=== PATIENT | male | born 1960 | race Caucasian/White ===

== ENCOUNTER → 2016-10-26 | Outpatient (CLI) | payer MEDICARE, OTHER ==
[~2016-10-26] MED LIST: AUGMENTIN TAB875 MG PO; ERYTHROMYCIN O3.5 GM OP; ERYTHROMYCIN OP1 GM OU; FLEXERIL 10 MG10 MG PO; GLUCOPHAGE500 MG PO; HYGROTON TAB 2525 MG PO; JANUVIA50 MG PO; KLONOPIN TAB 00.5 MG PO; LIPITOR TAB 2020 MG PO; LISINOPRIL40 MG PO; LOPRESSOR50 MG PO; METOPROLOL TART50 MG PO; NORVASC10 MG PO; OXYCONTIN15 MG PO; SYNTHROID88 MCG PO; VITAMIN D1000 UNIT PO; VITAMIN D31000 UNI1 PO
== END ==
LOC: KOH-I 11:39
DX: S62.102A Fracture of unspecified carpal bone, left wrist, initial encounter for closed fracture (principal)
CPT/HCPCS: 73200

== ENCOUNTER 2016-11-21 11:00 | Inpatient (IN) | payer MEDICARE, OTHER ==
[~2016-11-21] VITALS: Ht 175.3 cm; Wt 120.0 kg
[2016-11-21 14:45] LABS: HEMOGLOBIN 12.1 gm/dl (14.0-17.5); RED BLOOD COUNT 4.28 M/UL (4.20-5.50)
[2016-11-21] MEDS ORDERED: VITAMIN D31000 UNI1 PO (22:28)
[2016-11-21] MEDS ORDERED: SYNTHROID88 MCG PO (22:29)
[2016-11-21] MEDS ORDERED: HYGROTON TAB 2525 MG PO (22:29)
[2016-11-21] MEDS ORDERED: GLUCOPHAGE500 MG PO (22:30)
[2016-11-21] MEDS ORDERED: FLEXERIL 10 MG10 MG PO (22:30)
[2016-11-21] MEDS ORDERED: LOPRESSOR50 MG PO (22:31)
[2016-11-21] MEDS ORDERED: NORVASC10 MG PO (22:31)
[2016-11-21] MEDS ORDERED: LIPITOR TAB 2020 MG PO (22:31)
[2016-11-21] MEDS ORDERED: JANUVIA50 MG PO (22:32)
[2016-11-21] MEDS ORDERED: OXYCONTIN15 MG PO (22:32)
[2016-11-21] MEDS ORDERED: KLONOPIN TAB 00.5 MG PO (22:32)
[2016-11-21] MEDS ORDERED: LISINOPRIL40 MG PO (22:33)
[2016-11-22 04:19] LABS: HEMOGLOBIN 11.7 gm/dl (14.0-17.5); RED BLOOD COUNT 4.15 M/UL (4.20-5.50); WHITE BLOOD COUNT 19.6 K/UL (4.5-11.0)
[2016-11-23 06:41] LABS: HEMOGLOBIN 11.8 gm/dl (14.0-17.5); RED BLOOD COUNT 4.21 M/UL (4.20-5.50); WHITE BLOOD COUNT 15.3 K/UL (4.5-11.0)
[2016-11-23 07:35] LABS: BUN/CREATININE RATIO 30 (0-10)
[2016-11-24] MEDS ORDERED: AUGMENTIN TAB875 MG PO ×2 (16:11→20:00)
[2016-11-24] MEDS ORDERED: ERYTHROMYCIN OP1 GM OU (16:12)
[2016-11-24] MEDS ORDERED: METOPROLOL TART50 MG PO (16:13)
[2016-11-24] MEDS ORDERED: ERYTHROMYCIN O3.5 GM OP (20:01)
[2016-11-24] MEDS ORDERED: VITAMIN D1000 UNIT PO (20:03)
== END 2016-11-24 20:50 | disposition home or self-care (01) | DRG 682 ==
LOC: ER1 11:00 → ZEROF 15:58 → CCU 22:18 → M/S 11-22 11:52
PROVIDERS: Student in an Organized Health Care Education/Training Program; ADMIT Family Medicine
DX: N17.9 Acute kidney failure, unspecified (principal); J18.9 Pneumonia, unspecified organism; J96.01 Acute respiratory failure with hypoxia; G93.41 Metabolic encephalopathy; R65.10 Systemic inflammatory response syndrome (SIRS) of non-infectious origin without acute organ dysfunction; R79.89 Other specified abnormal findings of blood chemistry; I12.9 Hypertensive chronic kidney disease with stage 1 through stage 4 chronic kidney disease, or unspecified chronic kidney disease; E78.5 Hyperlipidemia, unspecified; E03.9 Hypothyroidism, unspecified; F17.210 Nicotine dependence, cigarettes, uncomplicated; N18.3 Chronic kidney disease, stage 3 (moderate); E83.42 Hypomagnesemia; K76.0 Fatty (change of) liver, not elsewhere classified; T38.3X5A Adverse effect of insulin and oral hypoglycemic [antidiabetic] drugs, initial encounter; H10.89 Other conjunctivitis; E11.649 Type 2 diabetes mellitus with hypoglycemia without coma; Z79.84 Long term (current) use of oral hypoglycemic drugs; Z79.899 Other long term (current) drug therapy; Z79.891 Long term (current) use of opiate analgesic; Z83.3 Family history of diabetes mellitus; Z84.1 Family history of disorders of kidney and ureter
CPT/HCPCS: 36415; 36600; 71010; 80048; 80053; 81001; 82533; 82550; 82553; 82803; 82962; 83036; 83605; 83690; 83735; 83874; 84439; 84443; 84484; 85025; 85027; 85610; 85730; 87040; 87070; 87086; 87205; 93005; 94640; 94664; 96374; 96375; 96376; 97116; 97530; 99291; J1335; J1644; J7030; J7050

== ENCOUNTER → 2021-04-14 | Day surgery (SDC) | payer MEDICARE, OTHER ==
[~2021-04-14] MED LIST changes: +CEPHALEXIN500 M1 PO; +CETIRIZINE HCL10 MG PO; +DULOXETINE HCL60 MG PO; +GLUCOPHAGE 500500 MG PO; +LOSARTAN-HCTZ1 EAC1 PO; +OXYCODONE-ACET1 EACH PO; +QUETIAPINE FUMA50 MG PO; +TRAZODONE HCL100 MG PO
== END | disposition home or self-care (01) ==
LOC: OR 06:06
PROVIDERS: Internal Medicine Gastroenterology
PROC: 0DBL8ZZ Excision of Transverse Colon, Via Natural or Artificial Opening Endoscopic (ICD-10-PCS; principal; 2021-04-14 07:30)
PROC: 0DBN8ZX Excision of Sigmoid Colon, Via Natural or Artificial Opening Endoscopic, Diagnostic (ICD-10-PCS; principal; 2021-04-14 07:30)
DX: D12.3 Benign neoplasm of transverse colon (principal); K63.5 Polyp of colon; K57.30 Diverticulosis of large intestine without perforation or abscess without bleeding; K64.0 First degree hemorrhoids; K62.89 Other specified diseases of anus and rectum; I10 Essential (primary) hypertension; E11.9 Type 2 diabetes mellitus without complications; E78.00 Pure hypercholesterolemia, unspecified; G47.30 Sleep apnea, unspecified; F17.210 Nicotine dependence, cigarettes, uncomplicated; E66.01 Morbid (severe) obesity due to excess calories; Z68.41 Body mass index [BMI] 40.0-44.9, adult; Z20.822 Contact with and (suspected) exposure to COVID-19; Z91.041 Radiographic dye allergy status; Z79.84 Long term (current) use of oral hypoglycemic drugs; Z79.891 Long term (current) use of opiate analgesic; Z79.899 Other long term (current) drug therapy
CPT/HCPCS: 82962; J2001; J2704; J7040

== ENCOUNTER 2021-04-24 11:47 | Emergency (ER) | payer MEDICARE, OTHER ==
[~2021-04-24 11:47] MED LIST changes: -CEPHALEXIN500 M1 PO
== END 2021-04-24 15:00 | disposition home or self-care (01) ==
LOC: ER1 11:47
DX: T24.201A Burn of second degree of unspecified site of right lower limb, except ankle and foot, initial encounter (principal); E11.9 Type 2 diabetes mellitus without complications; I10 Essential (primary) hypertension; E78.5 Hyperlipidemia, unspecified; Z91.041 Radiographic dye allergy status; F17.200 Nicotine dependence, unspecified, uncomplicated; X08.8XXA Exposure to other specified smoke, fire and flames, initial encounter; Z23 Encounter for immunization
CPT/HCPCS: 90471; 90715; 99283

== ENCOUNTER 2021-04-30 13:14 | Emergency (ER) | payer MEDICARE, OTHER ==
[2021-04-30] MEDS ORDERED: CEPHALEXIN500 M1 PO (14:15)
== END 2021-04-30 14:21 | disposition home or self-care (01) ==
LOC: ER1 13:14
DX: T24.101A Burn of first degree of unspecified site of right lower limb, except ankle and foot, initial encounter (principal); T31.0 Burns involving less than 10% of body surface; E11.9 Type 2 diabetes mellitus without complications; I10 Essential (primary) hypertension; E78.5 Hyperlipidemia, unspecified; F17.210 Nicotine dependence, cigarettes, uncomplicated; Z91.041 Radiographic dye allergy status
CPT/HCPCS: 99283

== ENCOUNTER → 2022-02-15 | Outpatient (CLI) | payer MEDICARE, OTHER ==
[~2022-02-15] MED LIST changes: +CEPHALEXIN500 M1 PO
== END ==
LOC: US 13:30
DX: R80.9 Proteinuria, unspecified (principal)

== ENCOUNTER → 2022-03-06 | Outpatient (CLI) | payer MEDICARE, OTHER | LOC: KOH-I 10:56 | DX: M54.50 Low back pain, unspecified (principal); M16.10 Unilateral primary osteoarthritis, unspecified hip; M51.36 Other intervertebral disc degeneration, lumbar region; M84.48XA Pathological fracture, other site, initial encounter for fracture; M61.9 Calcification and ossification of muscle, unspecified | CPT/HCPCS: 72100; 73522 ==

== ENCOUNTER → 2022-05-15 | Outpatient (CLI) | payer MEDICARE, OTHER | LOC: KOH-I 15:23 | DX: M79.605 Pain in left leg (principal); M65.862 Other synovitis and tenosynovitis, left lower leg | CPT/HCPCS: 73590 ==